=== PATIENT | female | born 1960 | race Caucasian/White ===

== ENCOUNTER 2017-07-30 04:09 | Inpatient (IN) | payer BC ==
[~2017-07-30] VITALS: Ht 152.4 cm; Wt 44.6 kg
[2017-07-30] VITALS (9 sets, daily range): BP systolic 153–214; BP diastolic 71–106
[~2017-07-30 04:09] MED LIST: ASPI325T8 PO; ATOR20TA58 PO; LEVE500T56 PO; LISI10TA2 PO; MULT1TAB52 PO
[2017-07-30] MEDS: fentaNYL PF VIAL 100 MCG/2 ML VIAL IV PRN ×4 (04:45→19:19)
[2017-07-30] MEDS ORDERED: ONDANSETRON PF 4 MG/2 ML VIAL. IV ONE (04:45)
[2017-07-30 04:48] LABS: BASO # 0.2 x10^3/uL (0.0-0.2); BASO % 1 % (0-3); EOS % 4 % (0-3); HEMOGLOBIN 13.9 g/dL (12.0-15.5); LYMPH # 3.3 x10^3/uL (1.0-4.8); LYMPH % 21 % (24-48); MEAN CORPUSCULAR HEMOGLOBIN 34 pg (25-35); MEAN CORPUSCULAR HGB CONC 34 g/dL (31-37); MEAN CORPUSCULAR VOLUME 99 fL (79-100); MONO % 7 % (0-9); NEUT % 68 % (31-73); PLATELET COUNT 444 x10^3/uL (140-400); RED BLOOD COUNT 4.14 x10^6/uL (3.50-5.40); WHITE BLOOD COUNT 15.8 x10^3/uL (4.0-11.0)
[2017-07-30 05:02] LABS: PROTHROMBIN TIME PATIENT 12.9 SEC (11.7-14.0)
[2017-07-30 05:03] LABS: CALCIUM 10.4 mg/dL (8.5-10.1); CREATININE 1.1 mg/dL (0.6-1.0); GFR 51.2; POTASSIUM 3.6 mmol/L (3.5-5.1)
[2017-07-30 05:09] LABS: ALBUMIN 4.5 g/dL (3.4-5.0); ALBUMIN/GLOBULIN RATIO 1.5 (1.0-1.7); TOTAL BILIRUBIN 0.3 mg/dL (0.2-1.0); TOTAL PROTEIN 7.6 g/dL (6.4-8.2)
--- NOTE | 2017-07-30 05:11 | ED.ADGEN ---
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 Patient states this is not consistent with prior migraines. She states that she first experiencing headaches that is this on Thursday, was seen at [facility], and subsequently seen in [facility]'s emergency department and admitted to the hospital, at that time she was hypertensive, and was treated with IV antibiotic medications and evaluated by cardiology. Patient states that she was feeling somewhat better, but was awoken this morning with a severe headache that radiates from the back of her head to the top of her head, denies any vision changes, any focal weakness, numbness or tingling, did extract one episode of emesis prior to arrival in the emergency department, and is currently experiencing emesis, food and fluid. Patient states she was taking all medications as directed, including her lisinopril. Initial blood pressure is 200 /99, heart rate is in the 40s and 50s, oxygenation saturation is 98% on room air , respiratory rate is 18 and unlabored. Patient denies any injuries, any neck pain, any focal weakness, numbness or tingling, any abdominal pain, any urinary complaints, states that pain has been persistent for the past several hours. Review of Systems Review of Systems Constitutional: Denies fever or chills. [] Eyes: Denies change in visual acuity. [] HENT: Denies nasal congestion or sore throat. [] Respiratory: Denies cough or shortness of breath. [] Cardiovascular: Denies chest pain or edema. [] GI: Denies abdominal pain, bloody stools or diarrhea. [] Nausea and vomiting associated with headache. : Denies dysuria. [] Musculoskeletal: Denies back pain or joint pain. [] Integument: Denies rash. [] Neurologic: Denies focal weakness or sensory changes. Headache, associated with nausea and vomiting. Endocrine: Denies polyuria or polydipsia. [] Lymphatic: Denies swollen glands. [] Psychiatric: Denies depression or anxiety. [] Current Medications Current Medications Current Medications Medications (Trade) Dose Ordered Sig/Li Start Time Stop Time Status Last Admin Dose Admin Dexamethasone Sodium Phosphate (Decadron) 6 mg 1X ONCE 07/30/17 05:30 07/30/17 05:31 DC 07/30/17 05:37 6 MG Diphenhydramine HCl (Benadryl) 25 mg 1X ONCE 07/30/17 06:00 07/30/17 06:01 DC 07/30/17 05:37 25 MG Fentanyl Citrate (Fentanyl 2ml Vial) 50 mcg PRN Q15MIN PRN 07/30/17 04:45 07/31/17 04:44 07/30/17 06:13 50 MCG Lidocaine HCl (Xylocaine-Mpf 1% Vial) 5 ml 1X ONCE 07/30/17 05:30 07/30/17 05:31 DC 07/30/17 05:27 5 ML Nicardipine HCl 50 mg/Sodium Chloride 270 ml @ 0 mls/hr CONT PRN 07/30/17 06:15 07/30/17 06:43 16.2 MLS/HR Ondansetron HCl (Zofran) 4 mg 1X ONCE 07/30/17 04:45 07/30/17 04:47 DC 07/30/17 04:45 4 MG Prochlorperazine Edisylate (Compazine) 10 mg 1X ONCE 07/30/17 06:00 07/30/17 06:01 DC 07/30/17 05:37 10 MG Allergies Allergies Allergies Coded Allergies Type Severity Reaction Last Updated Verified No Known Drug Allergies 07/27/17 No Physical Exam Physical Exam Constitutional: Well developed, well nourished, patient with active emesis in the emergency department, appears acutely uncomfortable, non-toxic appearance. [ ] HENT: Normocephalic, atraumatic, bilateral external ears normal, oropharynx moist, no oral exudates, nose normal. [] Eyes: PERRLA, EOMI, conjunctiva normal, no discharge. [] Neck: Normal range of motion, no tenderness, supple, no stridor. [] Cardiovascular:Heart rate regular rhythm, no murmur, S1, S2, rubs or gallops. [] Lungs & Thorax: Bilateral breath sounds clear to auscultation, no wheezing, rhonchi, rales. No chest wall crepitus or tenderness. [] Abdomen: Bowel sounds normal, soft, no rebound, rigidity, no guarding, no tenderness, no masses, no pulsatile masses. [] Skin: Warm, dry, no erythema, no rash. [] Back: No tenderness, no CVA tenderness. [] Extremities: No tenderness, no cyanosis, no clubbing, ROM intact, no edema. [] Neurologic: Alert and oriented X 3, normal motor function, normal sensory function, no focal deficits noted. []Pupils are 3 mm and equal bilaterally. Negative jolt accentuation test. 5-5 strength in all extremities normal sensation. Psychologic: Affect normal, judgement normal, mood normal. [] Current Patient Data Vital Signs Vital Signs Date Time Temp Pulse Resp B/P (MAP) Pulse Ox O2 Delivery O2 Flow Rate FiO2 07/30/17 06:37 62 14 170/76 (107) 96 Room Air 07/30/17 04:24 97.6 97.6 Lab Values Laboratory Tests Test 07/30/17 04:25 07/30/17 05:25 White Blood Count 15.8 x10^3/uL (4.0-11.0) H Red Blood Count 4.14 x10^6/uL (3.50-5.40) Hemoglobin 13.9 g/dL (12.0-15.5) Hematocrit 41.0 % (36.0-47.0) Mean Corpuscular Volume 99 fL (79-100) Mean Corpuscular Hemoglobin 34 pg (25-35) Mean Corpuscular Hemoglobin Concent 34 g/dL (31-37) Red Cell Distribution Width 13.0 % (11.5-14.5) Platelet Count 444 x10^3/uL (140-400) H Neutrophils (%) (Auto) 68 % (31-73) Lymphocytes (%) (Auto) 21 % (24-48) L Monocytes (%) (Auto) 7 % (0-9) Eosinophils (%) (Auto) 4 % (0-3) H Basophils (%) (Auto) 1 % (0-3) Neutrophils # (Auto) 10.7 x10^3uL (1.8-7.7) H Lymphocytes # (Auto) 3.3 x10^3/uL (1.0-4.8) Monocytes # (Auto) 1.1 x10^3/uL (0.0-1.1) Eosinophils # (Auto) 0.6 x10^3/uL (0.0-0.7) Basophils # (Auto) 0.2 x10^3/uL (0.0-0.2) Prothrombin Time 12.9 SEC (11.7-14.0) Prothrombin Time INR 1.0 (0.8-1.1) PTT 32 SEC (24-38) Sodium Level 137 mmol/L (136-145) Potassium Level 3.6 mmol/L (3.5-5.1) Chloride Level 98 mmol/L (98-107) Carbon Dioxide Level 28 mmol/L (21-32) Anion Gap 11 (6-14) Blood Urea Nitrogen 17 mg/dL (7-20) Creatinine 1.1 mg/dL (0.6-1.0) H Estimated GFR (Cockcroft-Gault) 51.2 BUN/Creatinine Ratio 15 (6-20) Glucose Level 123 mg/dL (70-99) H Calcium Level 10.4 mg/dL (8.5-10.1) H Total Bilirubin 0.3 mg/dL (0.2-1.0) Aspartate Amino Transferase (AST) 20 U/L (15-37) Alanine Aminotransferase (ALT) 32 U/L (14-59) Alkaline Phosphatase 97 U/L (46-116) Troponin I Quantitative < 0.017 ng/mL (0.000-0.055) EK-Ebb-Q-Type Natriuretic Peptide 789 pg/mL (0-124) H Total Protein 7.6 g/dL (6.4-8.2) Albumin 4.5 g/dL (3.4-5.0) Albumin/Globulin Ratio 1.5 (1.0-1.7) Urine Collection Type Void Urine Color Yellow Urine Clarity Clear Urine pH 5.5 Urine Specific [place] 1.015 Urine Protein Negative mg/dL (NEG-TRACE) Urine Glucose (UA) Negative mg/dL (NEG) Urine Ketones (Stick) Negative mg/dL (NEG) Urine Blood Negative (NEG) Urine Nitrite Negative (NEG) Urine Bilirubin Negative (NEG) Urine Urobilinogen Dipstick 0.2 mg/dL (0.2 mg/dL) Urine Leukocyte Esterase Trace (NEG) Urine RBC Occ /HPF (0-2) Urine WBC 1-4 /HPF (0-4) Urine Squamous Epithelial Cells Few /LPF Urine Bacteria Few /HPF (0-FEW) Urine Mucus Slight /LPF Urine Opiates Screen Neg (NEG) Urine Methadone Screen Neg (NEG) Urine Barbiturates Neg (NEG) Urine Phencyclidine Screen Neg (NEG) Urine Amphetamine/Methamphetamine Neg (NEG) Urine Benzodiazepines Screen Neg (NEG) Urine Cocaine Screen Neg (NEG) Urine Cannabinoids Screen Neg (NEG) Urine Ethyl Alcohol Neg (NEG) Laboratory Tests 07/30/17 04:25 Laboratory Tests 07/30/17 04:25 EKG EKG EC: Sinus bradycardia, heart rate 47 beats/minute, right axis deviation with incomplete right bundle branch block noted, contour abnormality is noted in the lateral leads, and in the anterior leads, when compared to ECG from , no significant changes noted, although depressions noted in the anterior leads are improved. As interpreted by me.[] Radiology/Procedures Radiology/Procedures [][facility] [address], [place] [id number] IMAGING REPORT Signed PATIENT: MICA HERNANDEZ ACCOUNT: [id number] : 1960 LOCATION: ER AGE: 56 SEX: F EXAM STATUS: REG ER ORD. PHYSICIAN: PATTI REAL DO REASON: MCCRACKEN/near syncope/HTN PROCEDURE: CT HEAD WO CONTRAST INDICATION: near syncope COMPARISON: July 27, 2017 TECHNIQUE: Axial CT images obtained through the head without intravenous contrast. One or more of the following individualized dose reduction techniques were utilized for this examination: 1. Automated exposure control; 2. Adjustment of the mA and/or kV according to patient size; 3. Use of iterative reconstruction technique. FINDINGS: No intracranial hemorrhage. No midline shift. Basal cisterns patents. Ventricles and sulci are globally prominent. No acute osseous abnormality. Orbits and paranasal sinuses unremarkable. Scattered foci of low attenuation within the white matter. Repeat demonstration of some encephalomalacia within the left cerebral hemisphere. Could be from old infarct. Presumed distal left internal carotid artery stent. IMPRESSION: 1. No acute intracranial hemorrhage. 2. Scattered regions of low attenuation within the white matter. Non-specific in nature but frequently secondary to chronic small vessel ischemic disease. If there is clinical concern for acute etiology MRI could better evaluate. 3. Prominence of ventricles and sulci which is frequently secondary to age related volume loss. Electronically signed by: Jacobo Zamora MD (07/30/2017 5:24 AM) [facility] DICTATED and SIGNED BY: JACOBO ZAMORA MD DATE: 07/30/17 0511 CC: LAINE KINSEY MD; PATTI REAL DO ~ Course & Med Decision Making Course & Med Decision Making Pertinent Labs and Imaging studies reviewed. (See chart for details) Patient with active emesis in the emergency department, complaining of severe headache, repeat CT obtaining laboratory studies after discussion with patient and at bedside. Patient received antiemetics, analgesia, blood pressure elevated, to 20s over 90s. Heart rate is in the 40s and 50s, which is consistent with patient's prior. CT of the head did not reveal any acute findings, patient has received fentanyl in the ED, and a lidocaine neb, states her pain is now down to about a 6 out of 10. Blood pressure has improved without any other interventions, to 150s over 70s. However, on additional reevaluation, patient states her pain has rebounded, despite administration of Decadron, Compazine, and Benadryl, and blood pressure has also increased again, is back up to 200s over 90s. This is after an observation period of several hours, with continued fluctuation blood pressures and adequate control of patient's symptoms despite multiple interventions. I did discuss this with patient has been at bedside, patient is agreeable for [place] or the hospital and reinstitution of a nicardipine infusion, to established blood pressure control. Findings as above discussed with Dr. Argueta of internal medicine, patient accepted to her service as a full admission to the ICU, with continued symptomatic management and blood pressure control, bridge orders entered per discussion. Dragon Disclaimer Dragon Disclaimer This electronic medical record was generated, in whole or in part, using a voice recognition dictation system. Departure Impression: Primary Impression: Head ache Additional Impression: Hypertensive urgency Disposition: 09 ADMITTED INPATIENT Admitting Physician: Other Condition: IMPROVED Problem Qualifiers PATTI REAL DO Jul 30, 2017 05:11
--- NOTE | 2017-07-30 05:27 | RAD ---
INDICATION: near syncope COMPARISON: July 27, 2017 TECHNIQUE: Axial CT images obtained through the head without intravenous contrast. One or more of the following individualized dose reduction techniques were utilized for this examination: 1. Automated exposure control; 2. Adjustment of the mA and/or kV according to patient size; 3. Use of iterative reconstruction technique. FINDINGS: No intracranial hemorrhage. No midline shift. Basal cisterns patents. Ventricles and sulci are globally prominent. No acute osseous abnormality. Orbits and paranasal sinuses unremarkable. Scattered foci of low attenuation within the white matter. Repeat demonstration of some encephalomalacia within the left cerebral hemisphere. Could be from old infarct. Presumed distal left internal carotid artery stent. IMPRESSION: 1. No acute intracranial hemorrhage. 2. Scattered regions of low attenuation within the white matter. Non-specific in nature but frequently secondary to chronic small vessel ischemic disease. If there is clinical concern for acute etiology MRI could better evaluate. 3. Prominence of ventricles and sulci which is frequently secondary to age related volume loss. Electronically signed by: Pritesh Kuhn MD (07/30/2017 5:24 AM) [facility]
[2017-07-30] MEDS ORDERED: LIDOCAINE 1% PF 2 ML VIAL. NEB ONE (05:30)
[2017-07-30] MEDS ORDERED: DEXAMETHASONE SOD PHOS 4 MG/ML VIAL IV ONE (05:30)
[2017-07-30 05:40] LABS: BILIRUBIN,URINE NEGATIVE (NEG); GLUCOSE,URINE NEGATIVE (NEG); NITRITE,URINE NEGATIVE (NEG); PH,URINE 5.5; PROTEIN,URINE NEGATIVE (NEG-TRACE); UROBILINOGEN,URINE 0.2 mg/dL (0.2 mg/dL)
[2017-07-30 05:47] LABS: BARBITURATES NEG (NEG); BENZODIAZEPINES NEG (NEG); CANNABINOIDS NEG (NEG); COCAINE NEG (NEG); METHADONE NEG (NEG); OPIATES NEG (NEG); PHENCYCLIDINE NEG (NEG)
[2017-07-30 05:59] LABS: BACTERIA,URINE FEW /HPF (0-FEW); RBC,URINE OCC /HPF (0-2); SQUAMOUS EPITHELIAL CELL,UR FEW /LPF
[2017-07-30] MEDS ORDERED: diphenhydrAMINE 50 MG/ML VIAL IVP ONE (06:00)
[2017-07-30] MEDS ORDERED: PROCHLORPERAZINE 10 MG/2 ML VIAL. IV ONE (06:00)
--- NOTE | 2017-07-30 06:49 | EKG ---
[facility] [address] [place] [address] Test Date: 2017-07-30 Test Time: 04:20:56 Pat Name: MICA HERNANDEZ Department: Room: Gender: F Rod Filler: : 1960 Requested By: PATTI REAL Order Number: [id number] Reading MD: Chau Barba Measurements Intervals [place] Rate: 47 P: 90 NC: 102 QRS: 98 QRSD: 100 T: 69 QT: 472 QTc: 421 Interpretive Statements SINUS BRADYCARDIA LATERAL ACCCESSORY PATHWAY Electronically Signed On 08-03-2017 10:57:17 CDT by Chau Barba
--- NOTE | 2017-07-30 07:22 | RAD ---
Indication near syncope. Protocol exam. A single view of the chest was obtained. No prior imaging of the chest is available. The heart and pulmonary vessels appear normal. The mediastinum has a normal appearance. The lungs are clear. IMPRESSION: No acute or focal process is seen in the chest
[2017-07-30] MEDS: levETIRAcetam 500 MG TABLET PO SCH ×2 (10:00→20:34)
[2017-07-30] MEDS: MULTIVITAMIN with MINERAL TABLET. PO SCH (10:00)
[2017-07-30] MEDS: ASPIRIN 325 MG TABLET PO SCH (10:00)
[2017-07-30] MEDS ORDERED: LISINOPRIL 10 MG TABLET PO SCH (10:00)
[2017-07-30] MEDS: hydrALAZINE 20 MG/ML VIAL. IVP PRN ×2 (10:35→19:21)
[2017-07-30] MEDS ORDERED: IBUPROFEN 600 MG TABLET. PO PRN (12:30)
--- NOTE | 2017-07-30 12:35 | PDOC1 ---
History and Physical Date of Admission Date of Admission DATE: 07/30/17 TIME: 12:28 Identification/Chief Complaint Chief Complaint headaches, severe Problems: Source Source: Caregiver, Chart review, Patient History of Present Illness History of Present Illness 56 y.o AA female, came to ER early this AM bec of severe headaches, BP was > 200 systolic. Neuro exam normal, Got 150 mcgs total fentanyl bec of severe headache. NIcardipine gtt ordered byt was run only for few hrs, NOw called keegan LANDAVERDE thsi am for BP > 180s. Was recently at [facility] for same issues and maybe LISA fleming dc on PO abx, Pt claims compliance with home lisinopril 10 PO qD, thinks "it doesnt work". PCP Dr. Farmer. CLaims hx CVA with R hand residual, but i dont appreciate any FNDs Past Medical History Cardiovascular: HTN Pulmonary: Bronchitis CENTRAL NERVOUS SYSTEM: CVA Past Surgical History Past Surgical History: No pertinent history Family History Family History: Hypertension Social History Smoke: <1 pack per day ALCOHOL: none Drugs: None Current Medications Current Medications Current Medications Ondansetron HCl (Zofran) 4 mg 1X ONCE IV Last administered on 07/30/17 04:45 ; Start 07/30/17 at 04:45; Stop 07/30/17 at 04:47; Status DC Fentanyl Citrate (Fentanyl 2ml Vial) 50 mcg PRN Q15MIN PRN IV PAIN GREATER THAN 3/10 Last administered on 07/30/17 06:13; Start 07/30/17 at 04:45; Stop at 04:44 Lidocaine HCl (Xylocaine-Mpf 1% Vial) 5 ml 1X ONCE NEB Last administered on 05:27; Start 07/30/17 at 05:30; Stop 07/30/17 at 05:31; Status DC Prochlorperazine Edisylate (Compazine) 10 mg 1X ONCE IV Last administered on 05:37; Start 07/30/17 at 06:00; Stop 07/30/17 at 06:01; Status DC Diphenhydramine HCl (Benadryl) 25 mg 1X ONCE IVP Last administered on 05:37; Start 07/30/17 at 06:00; Stop 07/30/17 at 06:01; Status DC Dexamethasone Sodium Phosphate (Decadron) 6 mg 1X ONCE IV Last administered on 07/30/17 05:37; Start 07/30/17 at 05:30; Stop 07/30/17 at 05:31; Status DC Nicardipine HCl 50 mg/Sodium Chloride 270 ml @ 0 mls/hr CONT PRN IV SEE I/O RECORD Last administered on 07/30/17 06:43; Start 07/30/17 at 06:15 Aspirin (Darvin Aspirin) 325 mg DAILYWBKFT PO ; Start 07/30/17 at 10:00 Atorvastatin Calcium (Lipitor) 20 mg QHS PO ; Start 07/30/17 at 21:00 Levetiracetam (Keppra) 500 mg BID PO ; Start 07/30/17 at 10:00 Lisinopril (Prinivil) 10 mg BID PO ; Start 07/30/17 at 10:00 Multivitamins (Thera M Plus) 1 tab DAILY PO ; Start 07/30/17 at 10:00 Hydralazine HCl (Apresoline) 10 mg PRN Q4HRS PRN IVP ELEVATED BP, SEE COMMENTS Last administered on 07/30/17 10:35; Start 07/30/17 at 10:30 Active Scripts Active Reported Multivitamins (Multivitamin) 1 Each Tablet 1 Tab PO DAILY Aspirin 325 Mg Tablet 1 Tab PO DAILY Atorvastatin Calcium 20 Mg Tablet 1 Tab PO DAILY Lisinopril 10 Mg Tablet 1 Tab PO BID Keppra (Levetiracetam) 500 Mg Tablet 1 Tab PO BID Allergies Allergies: Coded Allergies: No Known Drug Allergies (Unverified , 07/27/17) ROS Review of System headaches, all else is neg Physical Exam General: Alert, Oriented X3, Cooperative, No acute distress HEENT: Atraumatic, PERRLA, EOMI Lungs: Clear to auscultation, Normal air movement Heart: S1S2, RRR, no thrills, no rubs, no gallops Cardiovascular: S1, S2 Breasts: Normal, Rt breast nml w/o mass, Lt breast nml w/o mass, Nipples normal Abdomen: Normal bowel sounds, Soft, No tenderness, No hepatosplenomegaly, No masses PELVIC: Nml ext genitalia Extremities: No clubbing, No cyanosis, No edema, Normal pulses, No tenderness/ swelling Skin: No rashes, No breakdown, No significant lesion Neuro: Normal gait, Normal speech, Strength at 5/5 X4 ext, Normal tone, Sensation intact, Cranial nerves 3-12 NL, Reflexes 2+ Psych/Mental Status: Mental status NL, Mood NL Vitals Vitals Vital Signs Date Time Temp Pulse Resp B/P (MAP) Pulse Ox O2 Delivery O2 Flow Rate FiO2 07/30/17 10:35 67 188/76 07/30/17 10:07 12 95 Room Air 07/30/17 04:24 97.6 97.6 Labs Labs Laboratory Tests Test 07/30/17 04:25 07/30/17 05:25 White Blood Count 15.8 x10^3/uL (4.0-11.0) Red Blood Count 4.14 x10^6/uL (3.50-5.40) Hemoglobin 13.9 g/dL (12.0-15.5) Hematocrit 41.0 % (36.0-47.0) Mean Corpuscular Volume 99 fL (79-100) Mean Corpuscular Hemoglobin 34 pg (25-35) Mean Corpuscular Hemoglobin Concent 34 g/dL (31-37) Red Cell Distribution Width 13.0 % (11.5-14.5) Platelet Count 444 x10^3/uL (140-400) Neutrophils (%) (Auto) 68 % (31-73) Lymphocytes (%) (Auto) 21 % (24-48) Monocytes (%) (Auto) 7 % (0-9) Eosinophils (%) (Auto) 4 % (0-3) Basophils (%) (Auto) 1 % (0-3) Neutrophils # (Auto) 10.7 x10^3uL (1.8-7.7) Lymphocytes # (Auto) 3.3 x10^3/uL (1.0-4.8) Monocytes # (Auto) 1.1 x10^3/uL (0.0-1.1) Eosinophils # (Auto) 0.6 x10^3/uL (0.0-0.7) Basophils # (Auto) 0.2 x10^3/uL (0.0-0.2) Prothrombin Time 12.9 SEC (11.7-14.0) Prothromb Time International Ratio 1.0 (0.8-1.1) Activated Partial Thromboplast Time 32 SEC (24-38) Sodium Level 137 mmol/L (136-145) Potassium Level 3.6 mmol/L (3.5-5.1) Chloride Level 98 mmol/L (98-107) Carbon Dioxide Level 28 mmol/L (21-32) Anion Gap 11 (6-14) Blood Urea Nitrogen 17 mg/dL (7-20) Creatinine 1.1 mg/dL (0.6-1.0) Estimated GFR (Cockcroft-Gault) 51.2 BUN/Creatinine Ratio 15 (6-20) Glucose Level 123 mg/dL (70-99) Calcium Level 10.4 mg/dL (8.5-10.1) Total Bilirubin 0.3 mg/dL (0.2-1.0) Aspartate Amino Transf (AST/SGOT) 20 U/L (15-37) Alanine Aminotransferase (ALT/SGPT) 32 U/L (14-59) Alkaline Phosphatase 97 U/L (46-116) Troponin I Quantitative < 0.017 ng/mL (0.000-0.055) JN-Cci-I-Type Natriuretic Peptide 789 pg/mL (0-124) Total Protein 7.6 g/dL (6.4-8.2) Albumin 4.5 g/dL (3.4-5.0) Albumin/Globulin Ratio 1.5 (1.0-1.7) Urine Collection Type Void Urine Color Yellow Urine Clarity Clear Urine pH 5.5 Urine Specific [place] 1.015 Urine Protein Negative mg/dL (NEG-TRACE) Urine Glucose (UA) Negative mg/dL (NEG) Urine Ketones (Stick) Negative mg/dL (NEG) Urine Blood Negative (NEG) Urine Nitrite Negative (NEG) Urine Bilirubin Negative (NEG) Urine Urobilinogen Dipstick 0.2 mg/dL (0.2 mg/dL) Urine Leukocyte Esterase Trace (NEG) Urine RBC Occ /HPF (0-2) Urine WBC 1-4 /HPF (0-4) Urine Squamous Epithelial Cells Few /LPF Urine Bacteria Few /HPF (0-FEW) Urine Mucus Slight /LPF Urine Opiates Screen Neg (NEG) Urine Methadone Screen Neg (NEG) Urine Barbiturates Neg (NEG) Urine Phencyclidine Screen Neg (NEG) Urine Amphetamine/Methamphetamine Neg (NEG) Urine Benzodiazepines Screen Neg (NEG) Urine Cocaine Screen Neg (NEG) Urine Cannabinoids Screen Neg (NEG) Urine Ethyl Alcohol Neg (NEG) Laboratory Tests Test 07/30/17 04:25 07/30/17 05:25 White Blood Count 15.8 x10^3/uL (4.0-11.0) Red Blood Count 4.14 x10^6/uL (3.50-5.40) Hemoglobin 13.9 g/dL (12.0-15.5) Hematocrit 41.0 % (36.0-47.0) Mean Corpuscular Volume 99 fL (79-100) Mean Corpuscular Hemoglobin 34 pg (25-35) Mean Corpuscular Hemoglobin Concent 34 g/dL (31-37) Red Cell Distribution Width 13.0 % (11.5-14.5) Platelet Count 444 x10^3/uL (140-400) Neutrophils (%) (Auto) 68 % (31-73) Lymphocytes (%) (Auto) 21 % (24-48) Monocytes (%) (Auto) 7 % (0-9) Eosinophils (%) (Auto) 4 % (0-3) Basophils (%) (Auto) 1 % (0-3) Neutrophils # (Auto) 10.7 x10^3uL (1.8-7.7) Lymphocytes # (Auto) 3.3 x10^3/uL (1.0-4.8) Monocytes # (Auto) 1.1 x10^3/uL (0.0-1.1) Eosinophils # (Auto) 0.6 x10^3/uL (0.0-0.7) Basophils # (Auto) 0.2 x10^3/uL (0.0-0.2) Prothrombin Time 12.9 SEC (11.7-14.0) Prothromb Time International Ratio 1.0 (0.8-1.1) Activated Partial Thromboplast Time 32 SEC (24-38) Sodium Level 137 mmol/L (136-145) Potassium Level 3.6 mmol/L (3.5-5.1) Chloride Level 98 mmol/L (98-107) Carbon Dioxide Level 28 mmol/L (21-32) Anion Gap 11 (6-14) Blood Urea Nitrogen 17 mg/dL (7-20) Creatinine 1.1 mg/dL (0.6-1.0) Estimated GFR (Cockcroft-Gault) 51.2 BUN/Creatinine Ratio 15 (6-20) Glucose Level 123 mg/dL (70-99) Calcium Level 10.4 mg/dL (8.5-10.1) Total Bilirubin 0.3 mg/dL (0.2-1.0) Aspartate Amino Transf (AST/SGOT) 20 U/L (15-37) Alanine Aminotransferase (ALT/SGPT) 32 U/L (14-59) Alkaline Phosphatase 97 U/L (46-116) Troponin I Quantitative < 0.017 ng/mL (0.000-0.055) GZ-Qzh-F-Type Natriuretic Peptide 789 pg/mL (0-124) Total Protein 7.6 g/dL (6.4-8.2) Albumin 4.5 g/dL (3.4-5.0) Albumin/Globulin Ratio 1.5 (1.0-1.7) Urine Collection Type Void Urine Color Yellow Urine Clarity Clear Urine pH 5.5 Urine Specific [place] 1.015 Urine Protein Negative mg/dL (NEG-TRACE) Urine Glucose (UA) Negative mg/dL (NEG) Urine Ketones (Stick) Negative mg/dL (NEG) Urine Blood Negative (NEG) Urine Nitrite Negative (NEG) Urine Bilirubin Negative (NEG) Urine Urobilinogen Dipstick 0.2 mg/dL (0.2 mg/dL) Urine Leukocyte Esterase Trace (NEG) Urine RBC Occ /HPF (0-2) Urine WBC 1-4 /HPF (0-4) Urine Squamous Epithelial Cells Few /LPF Urine Bacteria Few /HPF (0-FEW) Urine Mucus Slight /LPF Urine Opiates Screen Neg (NEG) Urine Methadone Screen Neg (NEG) Urine Barbiturates Neg (NEG) Urine Phencyclidine Screen Neg (NEG) Urine Amphetamine/Methamphetamine Neg (NEG) Urine Benzodiazepines Screen Neg (NEG) Urine Cocaine Screen Neg (NEG) Urine Cannabinoids Screen Neg (NEG) Urine Ethyl Alcohol Neg (NEG) VTE Prophylaxis Ordered VTE Prophylaxis Devices: Yes VTE Pharmacological Prophylaxi: Yes Assessment/Plan Assessment/Plan 1. MAlignant HTN POA 2. HEadaches in the background of # [address] head 4. HX CVA per pt account PLAN: Add HCTZ 25 PO INc lisinopril to 20 PO QD Prn hydralazine Check echo Ok to t.o CVC if beds needed Denny Moreno Hopefully home kaylee when BP better and echo ok BJ ARROYO MD Jul 30, 2017 12:35
[2017-07-30] MEDS ORDERED: LISINOPRIL 20 MG TABLET PO SCH (13:00)
[2017-07-30] MEDS: hydroCHLOROthiazide 25 MG TABLET PO SCH (14:32)
--- NOTE | 2017-07-30 16:21 | CARD ---
APPROVED REPORT EXAM: Two-dimensional and M-mode echocardiogram with Doppler and color Doppler. Other Information Quality : Average Rhythm : Tachycardia INDICATION Hypertension/HCVD 2D DIMENSIONS Left Atrium(2D)2.1 (1.6-4.0cm)IVSd1.0 (0.7-1.1cm) Aortic Root(2D)2.2 (2.0-3.7cm)LVDd3.0 (3.9-5.9cm) LVOT Diameter2.0 (1.8-2.4cm)PWd1.0 (0.7-1.1cm) LVDs2.1 (2.5-4.0cm)FS (%) 29.1 % SV20.2 mlLVEF(%)57.5 (>50%) Aortic Valve AoV Peak Donald.201.8cm/sAoV VTI36.1cm AO Peak GR.16.3mmHgLVOT Peak Donald.154.6cm/s LVOT VTI 28.96cmAO Mean GR.11mmHg ELA (VMAX)2.05mw1RFH (VTI)2.62cm2 Mitral Valve MV E Wbzoimmg88.2cm/sMV DECEL SFQH637ne MV A Ovkrytty698.1cm/sMV E Mean Gr.4mmHg MV UJE23yqF/A Ratio0.6 MV A Yaybouvw07vrXUL (PHT)2.38cm2 TDI E/Lateral E'12.0E/Medial E'13.8 Pulmonary Valve PV Peak Ttzwyxdi119.0cm/sPV Peak Grad.17mmHg Tricuspid Valve TR P. Olbbdoqp107au/sRAP MIVBTZBN9cnFw TR Peak Gr.18kbIkHJKO23grPq Pulmonary Vein S1 Nfgacmgh61.4cm/sD2 Ktjnvced68.3cm/s LEFT VENTRICLE The left ventricle is normal size. There is normal left ventricular wall thickness. The echo findings are suggestive of left ventricular outflow obstruction. Peak gradient of 76mmHg and valsalva gradien t of 110mmHg although this may be purely related to hypercontractile LV with underfilled ventricle. L eft ventricle systolic function is hyperdynamic. EF > 80% There is normal LV segmental wall motion. T issue Doppler imaging reveals mild left ventricular diastolic dysfunction. Transmitral Doppler flow p attern is Grade I-abnormal relaxation pattern. There is no ventricular septal defect visualized. RIGHT VENTRICLE The right ventricle is normal size. The right ventricular systolic function is normal. ATRIA The left atrium size is normal. The right atrium size is normal. The interatrial septum is intact wit h no evidence for an atrial septal defect or patent foramen ovale as noted on 2-D or Doppler imaging. AORTIC VALVE The aortic valve is not well visualized. Doppler and Color Flow revealed no significant aortic regurg itation. There is no significant aortic valvular stenosis. MITRAL VALVE The mitral valve leaflets are thickened. There is no mitral valve stenosis. Doppler and Color Flow re vealed no mitral valve regurgitation noted. TRICUSPID VALVE The tricuspid valve is not well visualized. Doppler and Color Flow revealed mild tricuspid regurgitat ion. The PA pressure was estimated at 48 mmHg. There is no tricuspid valve stenosis. PULMONIC VALVE The pulmonic valve is not well visualized. Doppler and Color Flow revealed no pulmonic valvular regur gitation. There is no pulmonic valvular stenosis. GREAT VESSELS The aortic root is normal in size. Normal pulmonary venous flow (Doppler). The IVC is normal in size and collapses >50% with inspiration. PERICARDIAL EFFUSION There is no evidence of significant pericardial effusion. Critical Notification Critical Value: No <Conclusion> There is normal left ventricular wall thickness. The echo findings are suggestive of left ventricular outflow obstruction. Peak gradient of 76mmHg and valsalva gradient of 110mmHg although this may be p urely related to hypercontractile LV with underfilled ventricle. Left ventricle systolic function is hyperdynamic. EF > 80% Doppler and Color Flow revealed mild tricuspid regurgitation. The PA pressure was estimated at 48 mmH g.
[2017-07-30] MEDS: IV NORMAL SALINE 1000ML BAG 1,000 ML IV SCH (19:21)
[2017-07-30] MEDS: LISINOPRIL 10 MG TABLET PO SCH (20:34)
[2017-07-30] MEDS ORDERED: ATORVASTATIN CALCIUM 20 MG TABLET PO SCH (21:00)
--- NOTE | 2017-07-31 01:06 | ACF ---
Admission Forms Criteria HEADACHES Clinical Indications for Admission to Inpatient Care ([place]/check or initial the applicable condition/criteria): Admission is indicated for 1 or more of the following(1)(2)(3)(4)(5): I. Unruptured but threatening aneurysm or vascular malformation II. Venous sinus thrombosis III. Increased intracranial pressure IV. Cerebral spinal fluid leak V Medication-overuse headachethat has failed all outpatient management options(6 )(7)(8) . Vasculitis (eg, giant cell (temporal) arteritis, central nervous system vasculitis) requiring intravenous corticosteroids, intravenous antithrombotic therapy, or inpatient monitoring (e.g., visual symptomsor findings, other ischemic manifestations)[A](9) VII. Severe (new) neurologic findings requiring inpatient care as indicated by 1 or more of the following(10)(11)(12) a) Papilledema b) Cerebral edema c) mass effect on CT scan d) Cerebral spinal fluid leak (13) e) Hydrocephalus(14)(15) f) Uncontrolled seizures(9)(16) [X] VIII Inpatient admission required rather than observational care (See Headaches: Observation Care as appropriate) because of 1 or more of the following(17): a) Severe pain requiring acute inpatient management b) Altered mental status that is severe or persistent c) Vomiting that is severe or persistent d) Dehydration that is severe or persistent e) New-onset focal neurologic deficit that is severe or persistent (eg, does not resolve during observation care) (18) [X] f) Hypertension requiring inpatient treatment g) IV fluid required rather than oral rehydration to replace significant ongoing (eg, for greater than 24 hours) losses (greater than 200 ml/hr or 3L/m2 per day) h) Cerebral bleeding, hydrocephalus, or vasospasm monitoring (19) i) Increased intracranial pressure or cerebral edema monitoring j) Other condition treatment or monitoring requiring inpatient admission Extended stay beyond goal length of stay may be needed for (36)(37): a) Intractable migraine b) Giant cell (temporal) arteritis with visual or other ischemic signs or symptoms(1) c) Subarachnoid or intracranial hemorrhage d) Malignant hypertension e) Detoxification from drug withdrawal in medication-overuse headache (6)(8) The original [facility] [employer] content created by Rod Baron has been revised. The portions of the content which have been revised are identified through the use of italic text or in bold, and [facility] has neither reviewed nor approved the modified material.All other unmodified content is copyright [facility]. Please see references footnoted in the original [facility] edition 2016 Admission Criteria Met?: Yes KANNAN TSAI Jul 31, 2017 01:06
[2017-07-31 02:53] VITALS: BP 156/71
[2017-07-31] MEDS: hydrALAZINE 20 MG/ML VIAL. IVP PRN (06:11)
[2017-07-31 07:00] VITALS: BP 151/62
[2017-07-31] MEDS: MULTIVITAMIN with MINERAL TABLET. PO SCH (08:23)
[2017-07-31] MEDS: levETIRAcetam 500 MG TABLET PO SCH (08:23)
[2017-07-31] MEDS: ASPIRIN 325 MG TABLET PO SCH (08:23)
[2017-07-31] MEDS: LISINOPRIL 10 MG TABLET PO SCH (08:24)
[2017-07-31] MEDS: hydroCHLOROthiazide 25 MG TABLET PO SCH (08:24)
--- NOTE | 2017-07-31 10:00 | PDOC2 ---
CARDIAC CONSULT DATE OF CONSULT Date of Consult DATE: 07/31/17 TIME: 09:24 REASON FOR CONSULT Reason for Consult: Increased HR REFERRING PHYSICIAN Referring Physician: El SOURCE Source: Chart review, Patient HISTORY OF PRESENT ILLNESS HISTORY OF PRESENT ILLNESS This is a pleasant 56 yo female admitted for complains of MCCRACKEN, nausea and vomiting. This was a pulsating frontal MCCRACKEN that went to the back of her eyse. No visual or auditory disturbances. No unilateral weakness not speech issues. Reports that this started while doing some house work and took excedrin for 3 consecutive days. Upon admission she was noted with high BP, and was vomiting and noted with slow HR in the 40s. Reports no CP, SOA, palpitations, frequent dizziness or syncope. Consult is for tachycardia in which was noted yesterday but this is when she was having HAs. Her BP is better controlled and presently denies MCCRACKEN. Reports no prior hx of CAD, arrhythmias or known HCM. She did try to control her BP at home by doubling her lisinopril but this did not work. 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 PAST MEDICAL HISTORY Cardiovascular: HTN, Hyperlipidemia, Other (carotid artery disease and dissection) Pulmonary: No pertinent hx CENTRAL NERVOUS SYSTEM: CVA, Migraine, Seizure, TIA GI: No pertinent hx Heme/Onc: No pertinent hx Hepatobiliary: No pertinent hx Psych: No pertinent hx Musculoskeletal: Osteoarthritis Rheumatologic: No pertinent hx Infectious disease: No pertinent hx ENT: No pertinent hx Renal/: No pertinent hx Endocrine: No pertinent hx Dermatology: No pertinent hx PAST SURGICAL HISTORY Past Surgical History: Other (carotid left stenting ) FAMILY HISTORY Family History noncontributory to CV SOCIAL HISTORY Smoke: <1 pack per day CURRENT MEDICATIONS CURRENT MEDICATIONS Current Medications Medications (Trade) Dose Ordered Sig/Li Route PRN Reason Start Time Stop Time Status Last Admin Dose Admin Aspirin (Darvin Aspirin) 325 mg DAILYWBKFT PO 07/30/17 10:00 07/31/17 08:23 Atorvastatin Calcium (Lipitor) 20 mg QHS PO 07/30/17 21:00 07/30/17 20:34 Levetiracetam (Keppra) 500 mg BID PO 07/30/17 10:00 07/31/17 08:23 Multivitamins (Thera M Plus) 1 tab DAILY PO 07/30/17 10:00 07/31/17 08:23 Hydralazine HCl (Apresoline) 10 mg PRN Q4HRS PRN IVP ELEVATED BP, SEE COMMENTS 07/30/17 10:30 07/31/17 06:11 Hydrochlorothiazide (Hydrodiuril) 25 mg DAILY PO 07/30/17 13:00 07/31/17 08:24 Lisinopril (Prinivil) 10 mg BID PO 07/30/17 13:00 07/31/17 08:24 Sodium Chloride 1,000 ml @ 60 mls/hr [id number] IV 07/30/17 19:00 07/30/17 19:21 Diltiazem HCl (Cardizem 24hr Cd) 120 mg DAILY PO 07/30/17 19:00 07/31/17 08:23 ALLERGIES ALLERGIES: Coded Allergies: No Known Drug Allergies (Unverified , 07/27/17) ROS Review of System 14 point ROS evaluated with pertinent positives noted per HPI PHYSICAL EXAM General: Alert, Oriented X3, Cooperative, No acute distress HEENT: Atraumatic, Mucous membr. moist/pink Heart: Regular rate (SR), Normal S1, Normal S2, Other (S4 with 4/6 apical systolic murmur) Abdomen: Soft, No tenderness Extremities: No cyanosis, No edema Skin: No breakdown, No significant lesion Neuro: Normal speech, Sensation intact Psych/Mental Status: Mental status NL, Mood NL MUSCULOSKELETAL: Osteoarthritic changes both hands VITALS VITALS Vital Signs Date Time Temp Pulse Resp B/P (MAP) Pulse Ox O2 Delivery O2 Flow Rate FiO2 07/31/17 08:24 70 166/77 07/31/17 07:00 98.1 17 97 Room Air 98.1 ECHOCARDIOGRAM ECHOCARDIOGRAM <Conclusion> There is normal left ventricular wall thickness. The echo findings are suggestive of left ventricular outflow obstruction. Peak gradient of 76mmHg and valsalva gradient of 110mmHg although this may be purely related to hypercontractile LV with underfilled ventricle. Left ventricle systolic function is hyperdynamic. EF > 80% Doppler and Color Flow revealed mild tricuspid regurgitation. The PA pressure was estimated at 48 mmHg. DATE: 07/30/17 1621 ASSESSMENT/PLAN ASSESSMENT/PLAN 1. MCCRACKEN: much better. Hx of migraine. Per PCP 2. Accelerated HTN: HCM contributing accentuated by MCCRACKEN. Controlled 3. HOCM vs HCM: No dizziness or syncope 4. Sinus tachycardia: likely from MCCRACKEN. Presently SR. EKG SR with IVCD 5. Sinus bradycardia: likely induced by uncontrolled HTN. NO further episodes since BP was controlled. 6. HLP 7. Hx of CVA, seizure, and left carotid artery dissection with repair Recommendations 1. Agree with cardizem for negative inotropy. Decrease lisinopril. May transition to BB if migraine issue 2. Continue with ASA and statin. 3. May need cardiac MRI for further evaluation 4. Neurology consultation defer to PCP Problems: CHARLES SMITH APRN Jul 31, 2017 10:00
[2017-07-31] MEDS ORDERED: SUMAtriptan SUCCINATE 25 MG TABLET PO PRN (10:15)
[2017-07-31 11:00] VITALS: BP 145/72
[2017-07-31] MEDS ORDERED: IBUPROFEN 600 MG TABLET. PO SCH (11:00)
[2017-07-31] MEDS ORDERED: TOPIRAMATE 25 MG TABLET. PO SCH (11:00)
[2017-07-31] MEDS: IV NORMAL SALINE 1000ML BAG 1,000 ML IV SCH (11:59)
--- NOTE | 2017-07-31 13:35 | PDOC2 ---
NEUROLOGY CONSULT Date of Admission Date of Admission DATE: 07/31/17 TIME: 13:27 Reason for Consult Reason for Consult: Headache. Hypertensive emergency, BP 226/94 mmHg. HTN, not controlled. HLD Hx of left carotid A dissection s/p stent placement. RECOMMENDATIONS/PLAN: BP control. Treat medical diseases. Brain MRI w/wo contrast, but was not done previously due to unknown MRI contraindications. HCT: Negative. HISTORY OF THE PRESENT ILLNESS: 56-y-old female patient with above medical diseases developed symptoms of headaches to come to the ER of [facility]. She was found to have elevated BP 226/94 mmHg this time. She was with similar symptoms and elevated BP and was hospitalized recently but returned with same problem. She was reportedly to have left carotid A dissection in the past but treated with stens and she said she had a CVA with right side weakness, but recovered well. PAST MEDICAL HISTORY: Please see above. PAST SURGERY HISTORY: Left carotid stent? ALLERGY: NKDA MEDICATIONS: Refer to [facility] FAMILY HISTORY: DM SOCIAL HISTORY: Lives at home. Denies smoking, drinking, and illicit drug use. REVIEW OF SYSTEMS: Constitutional: No malnutrition or cachexia. Head: No recent traumatic brain or head injury. Skin: No edema, or rash. Ear: No infection. Eyes: No vision loss or color blindness. Nose: No bleeding or purulent discharges. Hearing: No hearing decrease. Neck: No injury. Breast: No history of cancer, masses,or discharges. Cardiac: HTN. Pulmonary: No COPD. GI: No GI ulcer, GI bleeding. Urinary/genital: UTI. Endocrinologic: No cousin face, craniofacial dysmorphism, polydactyly. Skeletomuscular: Generalized weakness. Neurological: seizure? Psychiatric: Denies drug use/abuse. Otherwise, not -nfaxx review of systems. PHYSICAL EXAMINATION: General appearance is in no acute distress. HEENT: Normocephalic and nontraumatic. Eyes, nose, ears, and throat are unremarkable. Neck is supple. No lymphadenopathy. No bruits are heard over the carotid artery. No crepitus. Cardiovascular: S1, S2, regular rate and rhythm. Pulmonary: Clear to auscultation bilaterally. Abdomen: Bowel sounds are positive. Abdomen is soft, nontender, and nondistended. Extremities: No rash, lesions, or edema. No restriction of range of motion NEUROLOGICAL EXAMINATION: Alert She stated her headaches were resolved at the time of neurological exam. Oriented to time, place and person. PERRL. EOMI. CN: no focal findings. Muscle tone: within normal. Muscle strength: 5 DTR: 2 Plantar reflex: Flexor response bilaterally Gait: not examined in bed. Sensory exam: no abnormal findings. No cerebellar signs elicited. F-T-N test fine. Current Medications Current Medications Current Medications Ondansetron HCl (Zofran) 4 mg 1X ONCE IV Last administered on 07/30/17 04:45 ; Start 07/30/17 at 04:45; Stop 07/30/17 at 04:47; Status DC Fentanyl Citrate (Fentanyl 2ml Vial) 50 mcg PRN Q15MIN PRN IV PAIN GREATER THAN 3/10 Last administered on 07/30/17 19:19; Start 07/30/17 at 04:45; Stop at 04:44; Status DC Lidocaine HCl (Xylocaine-Mpf 1% Vial) 5 ml 1X ONCE NEB Last administered on 05:27; Start 07/30/17 at 05:30; Stop 07/30/17 at 05:31; Status DC Prochlorperazine Edisylate (Compazine) 10 mg 1X ONCE IV Last administered on 05:37; Start 07/30/17 at 06:00; Stop 07/30/17 at 06:01; Status DC Diphenhydramine HCl (Benadryl) 25 mg 1X ONCE IVP Last administered on 05:37; Start 07/30/17 at 06:00; Stop 07/30/17 at 06:01; Status DC Dexamethasone Sodium Phosphate (Decadron) 6 mg 1X ONCE IV Last administered on 07/30/17 05:37; Start 07/30/17 at 05:30; Stop 07/30/17 at 05:31; Status DC Nicardipine HCl 50 mg/Sodium Chloride 270 ml @ 0 mls/hr CONT PRN IV SEE I/O RECORD Last administered on 07/30/17 06:43; Start 07/30/17 at 06:15; Stop 07/30 at 12:28; Status DC Aspirin (Darvin Aspirin) 325 mg DAILYWBKFT PO Last administered on 07/31/17 08: 23; Start 07/30/17 at 10:00 Atorvastatin Calcium (Lipitor) 20 mg QHS PO Last administered on 07/30/17 20: 34; Start 07/30/17 at 21:00 Levetiracetam (Keppra) 500 mg BID PO Last administered on 07/31/17 08:23; Start 07/30/17 at 10:00 Lisinopril (Prinivil) 10 mg BID PO ; Start 07/30/17 at 10:00; Stop 07/30/17 at 12:28; Status DC Multivitamins (Thera M Plus) 1 tab DAILY PO Last administered on 07/31/17 08: 23; Start 07/30/17 at 10:00 Hydralazine HCl (Apresoline) 10 mg PRN Q4HRS PRN IVP ELEVATED BP, SEE COMMENTS Last administered on 07/31/17 06:11; Start 07/30/17 at 10:30 Lisinopril (Prinivil) 20 mg BID PO ; Start 07/30/17 at 13:00; Stop 07/30/17 at 13:00; Status DC Hydrochlorothiazide (Hydrodiuril) 25 mg DAILY PO Last administered on 08:24; Start 07/30/17 at 13:00 Ibuprofen (Motrin) 600 mg PRN Q6HRS PRN PO INFLAMMATION; Start 07/30/17 at 12: 30 Lisinopril (Prinivil) 10 mg BID PO Last administered on 07/31/17 08:24; Start 07/30/17 at 13:00; Stop 07/31/17 at 09:53; Status DC Sodium Chloride 1,000 ml @ 60 mls/hr [id number] IV Last administered on 11:59; Start 07/30/17 at 19:00 Diltiazem HCl (Cardizem 24hr Cd) 120 mg DAILY PO Last administered on 08:23; Start 07/30/17 at 19:00 Lisinopril (Prinivil) 10 mg DAILY PO ; Start 08/01/17 at 09:00 Ibuprofen (Motrin) 600 mg TID PO ; Start 07/31/17 at 11:00 Sumatriptan Succinate (Imitrex) 50 mg PRN Q2HR PRN PO MIGRAINE HEADACHE; Start 07/31/17 at 10:15 Topiramate (Topamax) 25 mg BID PO ; Start 07/31/17 at 11:00 Active Scripts Active Reported Multivitamins (Multivitamin) 1 Each Tablet 1 Tab PO DAILY Aspirin 325 Mg Tablet 1 Tab PO DAILY Atorvastatin Calcium 20 Mg Tablet 1 Tab PO DAILY Lisinopril 10 Mg Tablet 1 Tab PO BID Keppra (Levetiracetam) 500 Mg Tablet 1 Tab PO BID Allergies Allergies: Coded Allergies: No Known Drug Allergies (Unverified , 07/27/17) Vitals VITALS Vital Signs Date Time Temp Pulse Resp B/P (MAP) Pulse Ox O2 Delivery O2 Flow Rate FiO2 07/31/17 11:00 97.4 74 18 145/72 (96) 97 Room Air 97.4 Labs Labs Laboratory Tests Test 07/30/17 04:25 07/30/17 05:25 07/31/17 10:38 White Blood Count 15.8 x10^3/uL (4.0-11.0) Red Blood Count 4.14 x10^6/uL (3.50-5.40) Hemoglobin 13.9 g/dL (12.0-15.5) Hematocrit 41.0 % (36.0-47.0) Mean Corpuscular Volume 99 fL (79-100) Mean Corpuscular Hemoglobin 34 pg (25-35) Mean Corpuscular Hemoglobin Concent 34 g/dL (31-37) Red Cell Distribution Width 13.0 % (11.5-14.5) Platelet Count 444 x10^3/uL (140-400) Neutrophils (%) (Auto) 68 % (31-73) Lymphocytes (%) (Auto) 21 % (24-48) Monocytes (%) (Auto) 7 % (0-9) Eosinophils (%) (Auto) 4 % (0-3) Basophils (%) (Auto) 1 % (0-3) Neutrophils # (Auto) 10.7 x10^3uL (1.8-7.7) Lymphocytes # (Auto) 3.3 x10^3/uL (1.0-4.8) Monocytes # (Auto) 1.1 x10^3/uL (0.0-1.1) Eosinophils # (Auto) 0.6 x10^3/uL (0.0-0.7) Basophils # (Auto) 0.2 x10^3/uL (0.0-0.2) Prothrombin Time 12.9 SEC (11.7-14.0) Prothromb Time International Ratio 1.0 (0.8-1.1) Activated Partial Thromboplast Time 32 SEC (24-38) Sodium Level 137 mmol/L (136-145) Potassium Level 3.6 mmol/L (3.5-5.1) Chloride Level 98 mmol/L (98-107) Carbon Dioxide Level 28 mmol/L (21-32) Anion Gap 11 (6-14) Blood Urea Nitrogen 17 mg/dL (7-20) Creatinine 1.1 mg/dL (0.6-1.0) Estimated GFR (Cockcroft-Gault) 51.2 BUN/Creatinine Ratio 15 (6-20) Glucose Level 123 mg/dL (70-99) Calcium Level 10.4 mg/dL (8.5-10.1) Total Bilirubin 0.3 mg/dL (0.2-1.0) Aspartate Amino Transf (AST/SGOT) 20 U/L (15-37) Alanine Aminotransferase (ALT/SGPT) 32 U/L (14-59) Alkaline Phosphatase 97 U/L (46-116) Troponin I Quantitative < 0.017 ng/mL (0.000-0.055) DJ-Ict-L-Type Natriuretic Peptide 789 pg/mL (0-124) Total Protein 7.6 g/dL (6.4-8.2) Albumin 4.5 g/dL (3.4-5.0) Albumin/Globulin Ratio 1.5 (1.0-1.7) Urine Collection Type Void Urine Color Yellow Urine Clarity Clear Urine pH 5.5 Urine Specific [place] 1.015 Urine Protein Negative mg/dL (NEG-TRACE) Urine Glucose (UA) Negative mg/dL (NEG) Urine Ketones (Stick) Negative mg/dL (NEG) Urine Blood Negative (NEG) Urine Nitrite Negative (NEG) Urine Bilirubin Negative (NEG) Urine Urobilinogen Dipstick 0.2 mg/dL (0.2 mg/dL) Urine Leukocyte Esterase Trace (NEG) Urine RBC Occ /HPF (0-2) Urine WBC 1-4 /HPF (0-4) Urine Squamous Epithelial Cells Few /LPF Urine Bacteria Few /HPF (0-FEW) Urine Mucus Slight /LPF Urine Opiates Screen Neg (NEG) Urine Methadone Screen Neg (NEG) Urine Barbiturates Neg (NEG) Urine Phencyclidine Screen Neg (NEG) Urine Amphetamine/Methamphetamine Neg (NEG) Urine Benzodiazepines Screen Neg (NEG) Urine Cocaine Screen Neg (NEG) Urine Cannabinoids Screen Neg (NEG) Urine Ethyl Alcohol Neg (NEG) Erythrocyte Sedimentation Rate 12 (0-25) Thyroid Stimulating Hormone (TSH) 0.789 uIU/mL (0.358-3.74) Laboratory Tests Test 07/31/17 10:38 Erythrocyte Sedimentation Rate 12 (0-25) Thyroid Stimulating Hormone (TSH) 0.789 uIU/mL (0.358-3.74) ILA SIMMONS MD Jul 31, 2017 13:35
--- NOTE | 2017-07-31 13:55 | PDOC3 ---
Discharge Summary Visit Information Date of Admission: Jul 30, 2017 Date of Discharge: Jul 31, 2017 Admitting Diagnosis Comment: 1. MAlignant HTN POA 2. HEadaches in the background of # [address] head 4. HX CVA per pt account Brief Hospital Course Allergies Allergies Coded Allergies Type Severity Reaction Last Updated Verified No Known Drug Allergies 07/27/17 No Vital Signs Vital Signs Date Time Temp Pulse Resp B/P (MAP) Pulse Ox O2 Delivery O2 Flow Rate FiO2 07/31/17 11:00 97.4 74 18 145/72 (96) 97 Room Air 97.4 Lab Results Laboratory Tests Test 07/30/17 04:25 07/30/17 05:25 07/31/17 10:38 White Blood Count 15.8 x10^3/uL (4.0-11.0) Red Blood Count 4.14 x10^6/uL (3.50-5.40) Hemoglobin 13.9 g/dL (12.0-15.5) Hematocrit 41.0 % (36.0-47.0) Mean Corpuscular Volume 99 fL (79-100) Mean Corpuscular Hemoglobin 34 pg (25-35) Mean Corpuscular Hemoglobin Concent 34 g/dL (31-37) Red Cell Distribution Width 13.0 % (11.5-14.5) Platelet Count 444 x10^3/uL (140-400) Neutrophils (%) (Auto) 68 % (31-73) Lymphocytes (%) (Auto) 21 % (24-48) Monocytes (%) (Auto) 7 % (0-9) Eosinophils (%) (Auto) 4 % (0-3) Basophils (%) (Auto) 1 % (0-3) Neutrophils # (Auto) 10.7 x10^3uL (1.8-7.7) Lymphocytes # (Auto) 3.3 x10^3/uL (1.0-4.8) Monocytes # (Auto) 1.1 x10^3/uL (0.0-1.1) Eosinophils # (Auto) 0.6 x10^3/uL (0.0-0.7) Basophils # (Auto) 0.2 x10^3/uL (0.0-0.2) Prothrombin Time 12.9 SEC (11.7-14.0) Prothromb Time International Ratio 1.0 (0.8-1.1) Activated Partial Thromboplast Time 32 SEC (24-38) Sodium Level 137 mmol/L (136-145) Potassium Level 3.6 mmol/L (3.5-5.1) Chloride Level 98 mmol/L (98-107) Carbon Dioxide Level 28 mmol/L (21-32) Anion Gap 11 (6-14) Blood Urea Nitrogen 17 mg/dL (7-20) Creatinine 1.1 mg/dL (0.6-1.0) Estimated GFR (Cockcroft-Gault) 51.2 BUN/Creatinine Ratio 15 (6-20) Glucose Level 123 mg/dL (70-99) Calcium Level 10.4 mg/dL (8.5-10.1) Total Bilirubin 0.3 mg/dL (0.2-1.0) Aspartate Amino Transf (AST/SGOT) 20 U/L (15-37) Alanine Aminotransferase (ALT/SGPT) 32 U/L (14-59) Alkaline Phosphatase 97 U/L (46-116) Troponin I Quantitative < 0.017 ng/mL (0.000-0.055) TD-Lit-J-Type Natriuretic Peptide 789 pg/mL (0-124) Total Protein 7.6 g/dL (6.4-8.2) Albumin 4.5 g/dL (3.4-5.0) Albumin/Globulin Ratio 1.5 (1.0-1.7) Urine Collection Type Void Urine Color Yellow Urine Clarity Clear Urine pH 5.5 Urine Specific [place] 1.015 Urine Protein Negative mg/dL (NEG-TRACE) Urine Glucose (UA) Negative mg/dL (NEG) Urine Ketones (Stick) Negative mg/dL (NEG) Urine Blood Negative (NEG) Urine Nitrite Negative (NEG) Urine Bilirubin Negative (NEG) Urine Urobilinogen Dipstick 0.2 mg/dL (0.2 mg/dL) Urine Leukocyte Esterase Trace (NEG) Urine RBC Occ /HPF (0-2) Urine WBC 1-4 /HPF (0-4) Urine Squamous Epithelial Cells Few /LPF Urine Bacteria Few /HPF (0-FEW) Urine Mucus Slight /LPF Urine Opiates Screen Neg (NEG) Urine Methadone Screen Neg (NEG) Urine Barbiturates Neg (NEG) Urine Phencyclidine Screen Neg (NEG) Urine Amphetamine/Methamphetamine Neg (NEG) Urine Benzodiazepines Screen Neg (NEG) Urine Cocaine Screen Neg (NEG) Urine Cannabinoids Screen Neg (NEG) Urine Ethyl Alcohol Neg (NEG) Erythrocyte Sedimentation Rate 12 (0-25) Thyroid Stimulating Hormone (TSH) 0.789 uIU/mL (0.358-3.74) Laboratory Tests Test 07/31/17 10:38 Erythrocyte Sedimentation Rate 12 (0-25) Thyroid Stimulating Hormone (TSH) 0.789 uIU/mL (0.358-3.74) Brief Hospital Course Ms. Wang is a 56 old female,admitted for systolic 200s and headaches, recent stroke with R hand numbness, treated in [facility]. Claims complaince to BP meds dcd with and ASA. Can get tachy on ambulation,. CO managed with cards. echo good, TSh normal . NO UTI on UA, started on cardziem, Neuro consulted for the migraines, Topamax mentioned but pt says not too bad for it. Seen and examined,. 2 visits, Denny juárez and time 34 mins > 50 % discussing MAP = SV x HR (hsuband had intellectual qs) Discharge Information Condition at Discharge: Improved, Stable Disposition/Orders: D/C to Home Scheduled Aspirin (Aspirin), 1 TAB PO DAILY, (Reported) Atorvastatin Calcium (Atorvastatin Calcium), 1 TAB PO DAILY, (Reported) Levetiracetam (Keppra), 1 TAB PO BID, (Reported) Lisinopril (Lisinopril), 1 TAB PO BID, (Reported) Multivitamin (Multivitamins), 1 TAB PO DAILY, (Reported) BJ ARROYO MD Jul 31, 2017 13:55
[2017-07-31] MEDS ORDERED: DILT180C2 PO (14:06)
[2017-07-31 15:00] VITALS: BP 113/69
[2017-07-31] MEDS ORDERED: LISI10TA2 PO (15:48)
[2017-08-01] MEDS ORDERED: LISINOPRIL 10 MG TABLET PO SCH (09:00)
== END 2017-07-31 16:00 | disposition home or self-care (01) | DRG 103 ==
LOC: ER 04:09 → 2 SOUTH 06:22
PROVIDERS: ADMIT Internal Medicine Hematology & Oncology; ATTEND Internal Medicine Hematology & Oncology
DX: G43.909 Migraine, unspecified, not intractable, without status migrainosus (principal); I10 Essential (primary) hypertension; E78.5 Hyperlipidemia, unspecified; E78.00 Pure hypercholesterolemia, unspecified; F17.210 Nicotine dependence, cigarettes, uncomplicated; I16.0 Hypertensive urgency; M19.90 Unspecified osteoarthritis, unspecified site; Z86.73 Personal history of transient ischemic attack (TIA), and cerebral infarction without residual deficits; Z79.82 Long term (current) use of aspirin; Z82.49 Family history of ischemic heart disease and other diseases of the circulatory system; Z83.3 Family history of diabetes mellitus
CPT/HCPCS: 36415; 70450; 71010; 80053; 80307; 81001; 83880; 84443; 84484; 85025; 85610; 85651; 85730; 87086; 93005; 93306; 94640; 96365; 96375; J0360; J0780; J1100; J1200; J2405; J3010; J7030; J7050; 99285-25; G0479

== ENCOUNTER → 2017-08-07 | Outpatient (CLI) | payer BC ==
[2017-07-31 15:00] VITALS: BP 113/69
[~2017-08-07] MED LIST changes: +DILT180C2 PO; +GADOBUTROL 7.5 MMOL/7.5 ML VIAL IV ONE
--- NOTE | 2017-08-07 11:34 | RAD ---
MRI of the Brain without and with Contrast 08/07/2017 Clinical History: Headaches with left arm weakness for one week. Technique: Unenhanced T1-weighted sagittal and axial and FLAIR, T2-weighted, gradient echo and diffusion-weighted axial images of the brain were obtained. After the intravenous administration of 4.5 cc of Gadavist, enhanced T1-weighted axial and coronal images of the brain were obtained. Findings: Comparison is made to the patient's CT scan of the head dated 07/30/2017. There is generalized parenchymal atrophy. Patchy and small scattered areas of abnormally increased signal intensity are seen within the periventricular and subcortical white matter of both cerebral hemispheres on the FLAIR and T2-weighted images consistent with areas of small vessel ischemic disease. An area encephalomalacia is seen involving the left parietal lobe. A small area of encephalomalacia is seen involving the left occipital lobe. These are unchanged. Wedge-shaped areas of restricted diffusion are seen involving both cerebellar hemispheres, right greater than left. These measure 3.5 and 4.5 cm in size. They are consistent with areas of acute ischemia/infarction. There is mild surrounding edema and associated mass effect without evidence of midline shift. No additional acute parenchymal abnormality is seen. No extra-axial fluid collection is noted. No abnormal area of contrast enhancement is seen. Mild mucosal thickening is seen scattered throughout the paranasal sinuses. Normal flow voids are seen within the major vascular structures surrounding the brain parenchyma. Impression: Areas of acute ischemia/infarction are seen involving both cerebellar hemispheres, right greater than left. There is mild surrounding edema and associated mass effect without evidence of midline shift. These findings were discussed with Dr. Ayala's nurse. Electronically signed by: Nicolas Childs MD (08/07/2017 11:31 AM) [facility]
== END | disposition home or self-care (01) ==
LOC: MRI 09:57
PROVIDERS: ATTEND Family Medicine
DX: G93.89 Other specified disorders of brain (principal); R51 Headache; R53.1 Weakness; R29.898 Other symptoms and signs involving the musculoskeletal system; Z86.73 Personal history of transient ischemic attack (TIA), and cerebral infarction without residual deficits
CPT/HCPCS: 70553; A9585

== ENCOUNTER → 2017-10-20 | Outpatient (CLI) | payer BC ==
[~2017-10-20] MED LIST changes: -GADOBUTROL 7.5 MMOL/7.5 ML VIAL IV ONE
--- NOTE | 2017-10-20 12:04 | CARD ---
APPROVED REPORT EXAM: Two-dimensional and M-mode echocardiogram with Doppler and color Doppler. Other Information Quality : Good INDICATION Possible LVOT Obstruction, BYRD 2D DIMENSIONS RVDd1.5 (2.9-3.5cm)Left Atrium(2D)2.1 (1.6-4.0cm) IVSd0.7 (0.7-1.1cm)Aortic Root(2D)2.3 (2.0-3.7cm) LVDd3.2 (3.9-5.9cm)LVOT Diameter1.7 (1.8-2.4cm) PWd0.8 (0.7-1.1cm)LVDs2.3 (2.5-4.0cm) FS (%) 29.1 %SV24.3 ml LVEF(%)57.2 (>50%) Aortic Valve AoV Peak Donald.120.7cm/sAoV VTI22.7cm AO Peak GR.5.8mmHgLVOT Peak Donald.107.7cm/s AO Mean GR.3mmHgAVA (VMAX)2.06cm2 ELA (VTI)2.30cm2 Mitral Valve MV E Fdmwtsrv973.9cm/sMV DECEL [id number] MV A Xdzyfjzw039.7cm/sE/A Ratio0.8 Pulmonary Vein S1 Orufpeyf17.5cm/sD2 Mwtzznkw49.6cm/s LEFT VENTRICLE The left ventricle is normal size. There is borderline to mild concentric left ventricular hypertroph y. The left ventricular systolic function is normal and the ejection fraction is within normal range. The Ejection Fraction is 55-60%. There is normal LV segmental wall motion. Transmitral Doppler flow pattern is Grade I-abnormal relaxation pattern. RIGHT VENTRICLE The right ventricle is normal size. The right ventricular systolic function is normal. ATRIA The left atrium size is normal. The right atrium size is normal. The interatrial septum is intact wit h no evidence for an atrial septal defect or patent foramen ovale as noted on 2-D or Doppler imaging. AORTIC VALVE The aortic valve is normal in structure and function. There is no LVOT obstruction noted. Doppler and Color Flow revealed no significant aortic regurgitation. There is no significant aortic valvular vi nosis. MITRAL VALVE The mitral valve is normal in structure and function. There is no evidence of mitral valve prolapse. There is no mitral valve stenosis. Doppler and Color-flow revealed mild mitral regurgitation. TRICUSPID VALVE The tricuspid valve is normal in structure and function. Doppler and Color Flow revealed no tricuspid valve regurgitation noted. There is no tricuspid valve stenosis. PULMONIC VALVE The pulmonary valve is normal in structure and function. Doppler and Color Flow revealed trace pulmon ic valvular regurgitation. There is no pulmonic valvular stenosis. GREAT VESSELS The aortic root is normal in size. The ascending aorta is normal in size. The IVC is normal in size a nd collapses >50% with inspiration. PERICARDIAL EFFUSION There is no evidence of significant pericardial effusion. Critical Notification Critical Value: No <Conclusion> The left ventricle is normal size. The left ventricular systolic function is normal and the ejection fraction is within normal range. The Ejection Fraction is 55-60%. There is borderline to mild concentric left ventricular hypertrophy. The aortic valve is normal in structure and function. There is no LVOT obstruction noted. There is no significant aortic valvular stenosis. Doppler and Color Flow revealed no significant aortic regurgitation. Doppler and Color-flow revealed mild mitral regurgitation. Doppler and Color Flow revealed no tricuspid valve regurgitation noted.
== END | disposition home or self-care (01) ==
LOC: ECHO 11:06
PROVIDERS: ATTEND Internal Medicine Cardiovascular Disease
DX: I34.0 Nonrheumatic mitral (valve) insufficiency (principal); Q24.8 Other specified congenital malformations of heart
CPT/HCPCS: 93306

== ENCOUNTER → 2019-09-13 | Outpatient (CLI) | payer BC ==
--- NOTE | 2019-09-13 14:10 | CARD ---
MR#: [id number] Date of Study: 09/13/2019 Ordering Physician: ALCON ZELAYA, Referring Physician: ALCON ZELAYA, Gerald: Destiney De La Garza APPROVED REPORT EXAM: Two-dimensional and M-mode echocardiogram with Doppler and color Doppler. Other Information Quality : AverageHR: 84bpm INDICATION LVOT Obstruction 2D DIMENSIONS RVDd1.5 (2.9-3.5cm)Left Atrium(2D)2.4 (1.6-4.0cm) IVSd0.8 (0.7-1.1cm)Aortic Root(2D)1.6 (2.0-3.7cm) LVDd3.2 (3.9-5.9cm)LVOT Diameter1.5 (1.8-2.4cm) PWd0.8 (0.7-1.1cm)LVDs1.9 (2.5-4.0cm) FS (%) 38.5 %SV27.8 ml LVEF(%)70.2 (>50%) Aortic Valve AoV Peak Donald.118.5cm/sAoV VTI27.6cm AO Peak GR.5.6mmHgLVOT Peak Donald.112.4cm/s AO Mean GR.3mmHgAVA (VMAX)1.60cm2 Mitral Valve MV E Yhhqzzay464.4cm/sMV E Peak Gr.9mmHg MV DECEL [id number] A Fkjfbiag436.5cm/s MV E Mean Gr.4mmHgE/A Ratio0.7 Pulmonary Valve PV Peak Ntwxoxvd58.0cm/s Tricuspid Valve RAP [id number] Pulmonary Vein S1 Crweykid43.3cm/sD2 Kxmgdrne43.8cm/s LEFT VENTRICLE The left ventricle is normal size. There is normal left ventricular wall thickness. The left ventricu lar systolic function is normal and the ejection fraction is within normal range. The Ejection Fracti on is 60-65%. There is normal LV segmental wall motion. Transmitral Doppler flow pattern is Grade I-a bnormal relaxation pattern. RIGHT VENTRICLE The right ventricle cavity is small. There is normal right ventricular wall thickness. The right vent ricular systolic function is normal. ATRIA The left atrium size is normal. The right atrium size is normal. The interatrial septum is intact wit h no evidence for an atrial septal defect or patent foramen ovale as noted on 2-D or Doppler imaging. AORTIC VALVE The aortic valve is thickened but opens well. Doppler and Color Flow revealed no significant aortic r egurgitation. There is no significant aortic valvular stenosis. MITRAL VALVE Rheumatic appearance of the mitral valve. There is no evidence of mitral valve prolapse. There is no mitral valve stenosis. Doppler and Color-flow revealed trace mitral regurgitation. TRICUSPID VALVE The tricuspid valve is normal in structure and function. Doppler and Color Flow revealed trace tricus pid regurgitation. There is no tricuspid valve stenosis. PULMONIC VALVE The pulmonic valve is not well visualized. Doppler and Color Flow revealed no pulmonic valvular regur gitation. There is no pulmonic valvular stenosis. GREAT VESSELS The aortic root is normal in size. The ascending aorta is normal in size. The IVC is normal in size a nd collapses >50% with inspiration. PERICARDIAL EFFUSION There is no pleural effusion. There is no evidence of significant pericardial effusion. Critical Notification Critical Value: No <Conclusion> The left ventricular systolic function is normal and the ejection fraction is within normal range. Th e Ejection Fraction is 60-65%. There is normal LV segmental wall motion. Rheumatic appearance of the mitral valve. No clear evidence of LVOT obstruction but limited doppler evaluation. Signed by : Chau Barba, Electronically Approved : 09/13/2019 14:09:55
== END | disposition home or self-care (01) ==
LOC: ECHO 13:04
PROVIDERS: ATTEND Internal Medicine Cardiovascular Disease
DX: Q24.8 Other specified congenital malformations of heart (principal)
CPT/HCPCS: 93306

== ENCOUNTER → 2021-03-26 | Outpatient (CLI) | payer BC ==
[~2021-03-26] MED LIST changes: +LISI10TA16 PO; -LISI10TA2 PO; +MULT-445 PO; -MULT1TAB52 PO
--- NOTE | 2021-03-27 12:41 | CARD ---
MR#: [id number] Date of Study: 03/26/2021 Ordering Physician: ALCON ZELAYA, Referring Physician: ALCON ZELAYA, Tech: Salina Pendleton, [facility] APPROVED REPORT EXAM: Two-dimensional and M-mode echocardiogram with Doppler and color Doppler. Other Information Quality : AverageHR: 72bpm INDICATION Left Ventricular Outflow track obstruction RISK FACTORS Hypertension Hyperlipidemia Smoking 2D DIMENSIONS RVDd1.9 (2.9-3.5cm)Left Atrium(2D)2.1 (1.6-4.0cm) IVSd0.8 (0.7-1.1cm)Aortic Root(2D)2.7 (2.0-3.7cm) LVDd3.5 (3.9-5.9cm)LVOT Diameter1.9 (1.8-2.4cm) PWd0.7 (0.7-1.1cm)LVDs1.6 (2.5-4.0cm) FS (%) 55.7 %SV44.6 ml LVEF(%)71.0 (>50%) Aortic Valve AoV Peak Donald.117.3cm/sAoV VTI27.7cm AO Peak GR.5.5mmHgLVOT Peak Donald.92.2cm/s LVOT VTI 23.57cmAO Mean GR.3mmHg ELA (VMAX)1.47dl1TPA (VTI)2.43cm2 Mitral Valve MV E Bmkwemtw430.7cm/sMV DECEL KMOE402dr MV A Ymbjnzow394.5cm/sMV HQF17ge E/A Ratio0.9MVA (PHT)2.84cm2 TDI E/Lateral E'18.1E/Medial E'22.7 Pulmonary Valve PV Peak Eagqstdq77.3cm/sPV Peak Grad.4mmHg Tricuspid Valve TR P. Vfnpcvul739kx/sRAP IDAYREUD4jqRw TR Peak Gr.98hiNnRVHM00bhLz Pulmonary Vein S1 Kllitlhn32.0cm/sD2 Ttkdjpfu90.7cm/s PVa toisvdtq656akmz LEFT VENTRICLE The left ventricle is normal size. There is normal left ventricular wall thickness. The left ventricu lar systolic function is normal and the ejection fraction is within normal range. The Ejection Fracti on is 55-60%. There is normal LV segmental wall motion. Transmitral Doppler flow pattern is Grade II- pseudonormal filling dynamics. RIGHT VENTRICLE The right ventricle is normal size. There is normal right ventricular wall thickness. The right ventr icular systolic function is normal. ATRIA The left atrium size is normal. The right atrium size is normal. The interatrial septum is intact wit h no evidence for an atrial septal defect or patent foramen ovale as noted on 2-D or Doppler imaging. AORTIC VALVE The aortic valve is not well visualized. Doppler and Color Flow revealed trace aortic regurgitation. There is no significant aortic valvular stenosis. Calculated aortic valve area is 2.34 cm2 with maxim um pressure gradient of 6 mmHg and mean pressure gradient of 4 mmHg. MITRAL VALVE The mitral valve anterior leaflet has a rheumatic appearance. There is no evidence of mitral valve pr olapse. There is no mitral valve stenosis. Doppler and Color-flow revealed trace mitral regurgitation . TRICUSPID VALVE The tricuspid valve is normal in structure and function. Doppler and Color Flow revealed trace tricus pid regurgitation with an estimated PAP of 28 mmHg. There is no tricuspid valve stenosis. PULMONIC VALVE The pulmonic valve is not well visualized. Doppler and Color Flow revealed trace pulmonic valvular re gurgitation. There is no pulmonic valvular stenosis. GREAT VESSELS The aortic root is normal in size. The IVC is normal in size and collapses >50% with inspiration. PERICARDIAL EFFUSION There is no evidence of significant pericardial effusion. Critical Notification Critical Value: No <Conclusion> The left ventricular systolic function is normal and the ejection fraction is within normal range. Th e Ejection Fraction is 55-60%. There is normal LV segmental wall motion. The mitral valve anterior leaflet has a rheumatic appearance. No significant stenosis or regurgitatio n. Signed by : Chau Barba, Electronically Approved : 03/27/2021 12:40:26
== END ==
LOC: ECHO 13:45
PROVIDERS: ATTEND Internal Medicine Cardiovascular Disease
DX: Q24.8 Other specified congenital malformations of heart (principal)
CPT/HCPCS: 93306